=== PATIENT | female | born 1970 | race Caucasian/White ===

== ENCOUNTER 2019-03-28 17:00 | Emergency (ER) | payer BC ==
--- OUTSIDE RECORDS SUMMARY | 2019-03-28 17:10 | XMS REPORT | Continuity of Care Document ---
:1970 External Reference #:[id number] Author Name Balbir Light M.D. Address [address] [place] [id number] Care Team Providers Name Role Phone Tristan Jiang M.D[facility] Care Team Information [employer] [phone] Problems Active Problems Provider Date Asthma without status asthmaticus Balbir Light M.D. Onset: 08/02/2018 Allergic rhinitis due to pollen Balbir Light M.D. Onset: 08/02/2018 Social History Type Date Description Comments Sex Unknown ETOH Use Occasionally consumes alcohol Tobacco Use Start: Unknown End: Patient is a former smoker Unknown Recreational Drug Use Denies Drug Use Smoking Status Reviewed: 08/02/18 Patient is a former smoker Allergies, Adverse Reactions, Alerts Active Allergies Reaction Severity Comments Date Codeine Hives 08/02/2018 Medications Active Medications SIG Qnty Indications Ordering Date Provider Arnuity Ellipta 1 inhalation once 30units Balbir Light, 08/02/2018 a day 90 day M.D. 200mcg/Act Aerosol supply Singulair 1 by mouth every 90tabs Balbir Light, 10mg Tablets day 90 day supply M.D. Levothyroxine Sodium Unknown 75mcg Tablets Turmeric Unknown 400mg Capsules Vitamin D High 1 tablets by mouth Unknown Potency everyday. 1000Unit Capsules Nasacort Allergy 24HR spray 1 spray into Unknown each nostril one 55mcg/Act Aerosol time daily Vitamin B12 twice a day Unknown 1000mcg Tablets ER Medications Administered in Office Medication SIG Qnty Indications Ordering Provider Date Injection Allergy Injection 02/14/2019 Injection Injection Allergy Injection 02/07/2019 Injection Injection Allergy Injection 01/30/2019 Injection Injection Allergy Injection 01/24/2019 Injection Injection Allergy Injection 01/15/2019 Injection Injection Allergy Injection 01/01/2019 Injection Injection Allergy Injection 12/25/2018 Injection Injection Allergy Injection 12/19/2018 Injection Injection Allergy Injection 12/11/2018 Injection Injection Allergy Injection 12/06/2018 Injection Injection Allergy Injection 11/28/2018 Injection Injection Allergy Injection 11/20/2018 Injection Injection Allergy Injection 11/14/2018 Injection Injection Allergy Injection 11/08/2018 Injection Injection Allergy Injection 10/31/2018 Injection Injection Allergy Injection 10/24/2018 Injection Injection Allergy Injection 10/17/2018 Injection Injection Allergy Injection 10/10/2018 Injection Injection Allergy Injection 10/03/2018 Injection Injection Allergy Injection 09/26/2018 Injection Injection Allergy Injection 09/20/2018 Injection Injection Allergy Injection 09/12/2018 Injection Injection Allergy Injection 08/23/2018 Injection Injection Allergy Injection 08/16/2018 Injection Injection Allergy Injection 08/09/2018 Injection Immunizations Description No Information Available Vital Signs Date Vital Result Comment 02/14/2019 3:22pm Height 61 inches 5'1" Weight 1258.00 lb Weight 570.629 kg Respiratory Rate 20 /min Heart Rate 58 /min O2 % BldC Oximetry 96 % BP Systolic 124 mmHg BP Diastolic 78 mmHg Asthma Control Test 22 BMI (Body Mass Index) 237.7 kg/m2 08/02/2018 2:22pm Height 61 inches 5'1" Weight 128.00 lb Weight 58.061 kg Respiratory Rate 18 /min O2 % BldC Oximetry 96 % BP Systolic 113 mmHg BP Diastolic 786 mmHg Fractional Exhaled Nitric Oxide 20 BMI (Body Mass Index) 24.2 kg/m2 Results Description No Information Available Procedures Date Code Description Status 02/14/2019 73540 Injection Completed 02/14/2019 71995 Pre PFT Completed 02/07/2019 91456 Injection Completed 01/30/2019 48219 Injection Completed 01/24/2019 33575 Injection Completed 01/15/2019 51226 Extract 1-10 Completed 01/15/2019 87154 Injection Completed 01/01/2019 56652 Injection Completed 12/25/2018 14861 Injection Completed 12/19/2018 41747 Injection Completed 12/11/2018 38012 Injection Completed 12/06/2018 26838 Injection Completed 11/28/2018 88232 Injection Completed 11/20/2018 36082 Injection Completed 11/14/2018 24633 Injection Completed 11/08/2018 49755 Injection Completed 10/31/2018 94247 Extract 1-10 Completed 10/31/2018 91822 Injection Completed 10/24/2018 39788 Injection Completed 10/17/2018 66582 Injection Completed 10/10/2018 66071 Injection Completed 10/03/2018 99984 Injection Completed 09/26/2018 67850 Injection Completed 09/20/2018 46668 Injection Completed 09/12/2018 67509 Injection Completed 08/23/2018 51866 Injection Completed 08/16/2018 89892 Injection Completed Medical Devices Description No Information Available Encounters Type Date Location Provider Dx Diagnosis Office Visit 02/14/2019 [place] [facility] Balbir Light M.D. J30.1 Allergic rhinitis 3:20p due to pollen J45.998 Other asthma Assessments Date Code Description Provider 02/14/2019 J30.1 Allergic rhinitis due to pollen Balbir Light M.D. 02/14/2019 J30.1 Allergic rhinitis due to pollen Balbir Light M.D. 02/14/2019 J30.1 Allergic rhinitis due to pollen Allergy Injection 02/14/2019 J30.2 Other seasonal allergic rhinitis Balbir Light M.D. 02/14/2019 J45.998 Other asthma Balbir Light M.D. 02/14/2019 J30.2 Other seasonal allergic rhinitis Allergy Injection 02/14/2019 J30.81 Allergic rhinitis due to animal (cat) Balbir Light M.D. (dog) hair and dander 02/14/2019 J30.81 Allergic rhinitis due to animal (cat) Allergy Injection (dog) hair and dander 02/14/2019 J30.89 Other allergic rhinitis Balbir Light M.D. 02/14/2019 J30.89 Other allergic rhinitis Allergy Injection 02/07/2019 J30.1 Allergic rhinitis due to pollen Balbir Light M.D. 02/07/2019 J30.1 Allergic rhinitis due to pollen Allergy Injection 02/07/2019 J30.2 Other seasonal allergic rhinitis Balbir Light M.D. 02/07/2019 J30.2 Other seasonal allergic rhinitis Allergy Injection 02/07/2019 J30.81 Allergic rhinitis due to animal (cat) Balbir Light M.D. (dog) hair and dander 02/07/2019 J30.81 Allergic rhinitis due to animal (cat) Allergy Injection (dog) hair and dander 02/07/2019 J30.89 Other allergic rhinitis Balbir Light M.D. 02/07/2019 J30.89 Other allergic rhinitis Allergy Injection 01/30/2019 J30.1 Allergic rhinitis due to pollen Balbir Light M.D. 01/30/2019 J30.1 Allergic rhinitis due to pollen Allergy Injection 01/30/2019 J30.2 Other seasonal allergic rhinitis Balbir Light M.D. 01/30/2019 J30.2 Other seasonal allergic rhinitis Allergy Injection 01/30/2019 J30.81 Allergic rhinitis due to animal (cat) Balbir Light M.D. (dog) hair and dander 01/30/2019 J30.81 Allergic rhinitis due to animal (cat) Allergy Injection (dog) hair and dander 01/30/2019 J30.89 Other allergic rhinitis Balbir Light M.D. 01/30/2019 J30.89 Other allergic rhinitis Allergy Injection 01/24/2019 J30.1 Allergic rhinitis due to pollen Balbir Light M.D. 01/24/2019 J30.1 Allergic rhinitis due to pollen Allergy Injection 01/24/2019 J30.2 Other seasonal allergic rhinitis Balbir Light M.D. 01/24/2019 J30.2 Other seasonal allergic rhinitis Allergy Injection 01/24/2019 J30.81 Allergic rhinitis due to animal (cat) Balbir Light M.D. (dog) hair and dander 01/24/2019 J30.81 Allergic rhinitis due to animal (cat) Allergy Injection (dog) hair and dander 01/24/2019 J30.89 Other allergic rhinitis Balbir Light M.D. 01/24/2019 J30.89 Other allergic rhinitis Allergy Injection 01/15/2019 J30.1 Allergic rhinitis due to pollen Balbir Light M.D. 01/15/2019 J30.1 Allergic rhinitis due to pollen Allergy Injection 01/15/2019 J30.2 Other seasonal allergic rhinitis Balbir Light M.D. 01/15/2019 J30.2 Other seasonal allergic rhinitis Allergy Injection 01/15/2019 J30.81 Allergic rhinitis due to animal (cat) Balbir Light M.D. (dog) hair and dander 01/15/2019 J30.81 Allergic rhinitis due to animal (cat) Allergy Injection (dog) hair and dander 01/15/2019 J30.89 Other allergic rhinitis Balbir Light M.D. 01/15/2019 J30.89 Other allergic rhinitis Allergy Injection 01/01/2019 J30.1 Allergic rhinitis due to pollen Balbir Light M.D. 01/01/2019 J30.1 Allergic rhinitis due to pollen Allergy Injection 01/01/2019 J30.2 Other seasonal allergic rhinitis Balbir Light M.D. 01/01/2019 J30.2 Other seasonal allergic rhinitis Allergy Injection 01/01/2019 J30.81 Allergic rhinitis due to animal (cat) Balbir Light M.D. (dog) hair and dander 01/01/2019 J30.81 Allergic rhinitis due to animal (cat) Allergy Injection (dog) hair and dander 01/01/2019 J30.89 Other allergic rhinitis Balibr Light M.D. 01/01/2019 J30.89 Other allergic rhinitis Allergy Injection 12/25/2018 J30.1 Allergic rhinitis due to pollen Balbir Light M.D. 12/25/2018 J30.1 Allergic rhinitis due to pollen Allergy Injection 12/25/2018 J30.2 Other seasonal allergic rhinitis Balbir Light M.D. 12/25/2018 J30.2 Other seasonal allergic rhinitis Allergy Injection 12/25/2018 J30.81 Allergic rhinitis due to animal (cat) Balbir Light M.D. (dog) hair and dander 12/25/2018 J30.81 Allergic rhinitis due to animal (cat) Allergy Injection (dog) hair and dander 12/25/2018 J30.89 Other allergic rhinitis Balbir Light M.D. 12/25/2018 J30.89 Other allergic rhinitis Allergy Injection 12/19/2018 J30.1 Allergic rhinitis due to pollen Balbir Light M.D. 12/19/2018 J30.1 Allergic rhinitis due to pollen Allergy Injection 12/19/2018 J30.2 Other seasonal allergic rhinitis Balbir Light M.D. 12/19/2018 J30.2 Other seasonal allergic rhinitis Allergy Injection 12/19/2018 J30.81 Allergic rhinitis due to animal (cat) Balbir Light M.D. (dog) hair and dander 12/19/2018 J30.81 Allergic rhinitis due to animal (cat) Allergy Injection (dog) hair and dander 12/19/2018 J30.89 Other allergic rhinitis Balbir Light M.D. 12/19/2018 J30.89 Other allergic rhinitis Allergy Injection 12/11/2018 J30.1 Allergic rhinitis due to pollen Balbir Light M.D. 12/11/2018 J30.1 Allergic rhinitis due to pollen Allergy Injection 12/11/2018 J30.2 Other seasonal allergic rhinitis Balbir Light M.D. 12/11/2018 J30.2 Other seasonal allergic rhinitis Allergy Injection 12/11/2018 J30.81 Allergic rhinitis due to animal (cat) Balbir Light M.D. (dog) hair and dander 12/11/2018 J30.81 Allergic rhinitis due to animal (cat) Allergy Injection (dog) hair and dander 12/11/2018 J30.89 Other allergic rhinitis Balbir Light M.D. 12/11/2018 J30.89 Other allergic rhinitis Allergy Injection 12/06/2018 J30.1 Allergic rhinitis due to pollen Balbir Light M.D. 12/06/2018 J30.1 Allergic rhinitis due to pollen Allergy Injection 12/06/2018 J30.2 Other seasonal allergic rhinitis Balbir Light M.D. 12/06/2018 J30.2 Other seasonal allergic rhinitis Allergy Injection 12/06/2018 J30.81 Allergic rhinitis due to animal (cat) Balbir Light M.D. (dog) hair and dander 12/06/2018 J30.81 Allergic rhinitis due to animal (cat) Allergy Injection (dog) hair and dander 12/06/2018 J30.89 Other allergic rhinitis Balbir Light M.D. 12/06/2018 J30.89 Other allergic rhinitis Allergy Injection 11/28/2018 J30.1 Allergic rhinitis due to pollen Balbir Light M.D. 11/28/2018 J30.1 Allergic rhinitis due to pollen Allergy Injection 11/28/2018 J30.2 Other seasonal allergic rhinitis Balbir Light M.D. 11/28/2018 J30.2 Other seasonal allergic rhinitis Allergy Injection 11/28/2018 J30.81 Allergic rhinitis due to animal (cat) Balbir Light M.D. (dog) hair and dander 11/28/2018 J30.81 Allergic rhinitis due to animal (cat) Allergy Injection (dog) hair and dander 11/28/2018 J30.89 Other allergic rhinitis Balbir Light M.D. 11/28/2018 J30.89 Other allergic rhinitis Allergy Injection 11/20/2018 J30.1 Allergic rhinitis due to pollen Balbir Light M.D. 11/20/2018 J30.1 Allergic rhinitis due to pollen Allergy Injection 11/20/2018 J30.2 Other seasonal allergic rhinitis Balbir Light M.D. 11/20/2018 J30.2 Other seasonal allergic rhinitis Allergy Injection 11/20/2018 J30.81 Allergic rhinitis due to animal (cat) Balbir Light M.D. (dog) hair and dander 11/20/2018 J30.81 Allergic rhinitis due to animal (cat) Allergy Injection (dog) hair and dander 11/20/2018 J30.89 Other allergic rhinitis Balbir Light M.D. 11/20/2018 J30.89 Other allergic rhinitis Allergy Injection 11/14/2018 J30.1 Allergic rhinitis due to pollen Balbir Light M.D. 11/14/2018 J30.1 Allergic rhinitis due to pollen Allergy Injection 11/14/2018 J30.2 Other seasonal allergic rhinitis Balbir Light M.D. 11/14/2018 J30.2 Other seasonal allergic rhinitis Allergy Injection 11/14/2018 J30.81 Allergic rhinitis due to animal (cat) Balbir Light M.D. (dog) hair and dander 11/14/2018 J30.81 Allergic rhinitis due to animal (cat) Allergy Injection (dog) hair and dander 11/14/2018 J30.89 Other allergic rhinitis Balbir Light M.D. 11/14/2018 J30.89 Other allergic rhinitis Allergy Injection 11/08/2018 J30.1 Allergic rhinitis due to pollen Balbir Light M.D. 11/08/2018 J30.1 Allergic rhinitis due to pollen Allergy Injection 11/08/2018 J30.2 Other seasonal allergic rhinitis Balbir Light M.D. 11/08/2018 J30.2 Other seasonal allergic rhinitis Allergy Injection 11/08/2018 J30.81 Allergic rhinitis due to animal (cat) Balbir Light M.D. (dog) hair and dander 11/08/2018 J30.81 Allergic rhinitis due to animal (cat) Allergy Injection (dog) hair and dander 11/08/2018 J30.89 Other allergic rhinitis Balbir Light M.D. 11/08/2018 J30.89 Other allergic rhinitis Allergy Injection 10/31/2018 J30.1 Allergic rhinitis due to pollen Balbir Light M.D. 10/31/2018 J30.1 Allergic rhinitis due to pollen Tamera Mars M.D. 10/31/2018 J30.2 Other seasonal allergic rhinitis Balbir Light M.D. 10/31/2018 J30.1 Allergic rhinitis due to pollen Allergy Injection 10/31/2018 J30.81 Allergic rhinitis due to animal (cat) Balbir Light M.D. (dog) hair and dander 10/31/2018 J30.2 Other seasonal allergic rhinitis Tamera Mars M.D. 10/31/2018 J30.89 Other allergic rhinitis Balbir Light M.D. 10/31/2018 J30.2 Other seasonal allergic rhinitis Allergy Injection 10/31/2018 J30.81 Allergic rhinitis due to animal (cat) Tamera Mars M.D. (dog) hair and dander 10/31/2018 J30.81 Allergic rhinitis due to animal (cat) Allergy Injection (dog) hair and dander 10/31/2018 J30.89 Other allergic rhinitis Tamera Mars M.D. 10/31/2018 J30.89 Other allergic rhinitis Allergy Injection 10/24/2018 J30.1 Allergic rhinitis due to pollen Balbir Light M.D. 10/24/2018 J30.1 Allergic rhinitis due to pollen Allergy Injection 10/24/2018 J30.2 Other seasonal allergic rhinitis Balbir Light M.D. 10/24/2018 J30.2 Other seasonal allergic rhinitis Allergy Injection 10/24/2018 J30.81 Allergic rhinitis due to animal (cat) Balbir Light M.D. (dog) hair and dander 10/24/2018 J30.81 Allergic rhinitis due to animal (cat) Allergy Injection (dog) hair and dander 10/24/2018 J30.89 Other allergic rhinitis Balbir Light M.D. 10/24/2018 J30.89 Other allergic rhinitis Allergy Injection 10/17/2018 J30.1 Allergic rhinitis due to pollen Balbir Light M.D. 10/17/2018 J30.1 Allergic rhinitis due to pollen Allergy Injection 10/17/2018 J30.2 Other seasonal allergic rhinitis Balbir Light M.D. 10/17/2018 J30.2 Other seasonal allergic rhinitis Allergy Injection 10/17/2018 J30.81 Allergic rhinitis due to animal (cat) Balbir Light M.D. (dog) hair and dander 10/17/2018 J30.81 Allergic rhinitis due to animal (cat) Allergy Injection (dog) hair and dander 10/17/2018 J30.89 Other allergic rhinitis Balbir Light M.D. 10/17/2018 J30.89 Other allergic rhinitis Allergy Injection 10/10/2018 J30.1 Allergic rhinitis due to pollen Balbir Light M.D. 10/10/2018 J30.1 Allergic rhinitis due to pollen Allergy Injection 10/10/2018 J30.2 Other seasonal allergic rhinitis Balbir Light M.D. 10/10/2018 J30.2 Other seasonal allergic rhinitis Allergy Injection 10/10/2018 J30.81 Allergic rhinitis due to animal (cat) Balbir Light M.D. (dog) hair and dander 10/10/2018 J30.81 Allergic rhinitis due to animal (cat) Allergy Injection (dog) hair and dander 10/10/2018 J30.89 Other allergic rhinitis Balbir Light M.D. 10/10/2018 J30.89 Other allergic rhinitis Allergy Injection 10/03/2018 J30.1 Allergic rhinitis due to pollen Balbir Light M.D. 10/03/2018 J30.1 Allergic rhinitis due to pollen Allergy Injection 10/03/2018 J30.2 Other seasonal allergic rhinitis Balbir Light M.D. 10/03/2018 J30.2 Other seasonal allergic rhinitis Allergy Injection 10/03/2018 J30.81 Allergic rhinitis due to animal (cat) Balbir Light M.D. (dog) hair and dander 10/03/2018 J30.81 Allergic rhinitis due to animal (cat) Allergy Injection (dog) hair and dander 10/03/2018 J30.89 Other allergic rhinitis Balbir Light M.D. 10/03/2018 J30.89 Other allergic rhinitis Allergy Injection 09/26/2018 J30.1 Allergic rhinitis due to pollen Balbir Light M.D. 09/26/2018 J30.1 Allergic rhinitis due to pollen Allergy Injection 09/26/2018 J30.2 Other seasonal allergic rhinitis Balbir Light M.D. 09/26/2018 J30.2 Other seasonal allergic rhinitis Allergy Injection 09/26/2018 J30.81 Allergic rhinitis due to animal (cat) Balbir Light M.D. (dog) hair and dander 09/26/2018 J30.81 Allergic rhinitis due to animal (cat) Allergy Injection (dog) hair and dander 09/26/2018 J30.89 Other allergic rhinitis Balbir Light M.D. 09/26/2018 J30.89 Other allergic rhinitis Allergy Injection 09/20/2018 J30.1 Allergic rhinitis due to pollen Balbir Light M.D. 09/20/2018 J30.1 Allergic rhinitis due to pollen Allergy Injection 09/20/2018 J30.2 Other seasonal allergic rhinitis Balbir Light M.D. 09/20/2018 J30.2 Other seasonal allergic rhinitis Allergy Injection 09/20/2018 J30.81 Allergic rhinitis due to animal (cat) Balbir Light M.D. (dog) hair and dander 09/20/2018 J30.81 Allergic rhinitis due to animal (cat) Allergy Injection (dog) hair and dander 09/20/2018 J30.89 Other allergic rhinitis Balbir Light M.D. 09/20/2018 J30.89 Other allergic rhinitis Allergy Injection 09/12/2018 J30.1 Allergic rhinitis due to pollen Balbir Light M.D. 09/12/2018 J30.1 Allergic rhinitis due to pollen Allergy Injection 09/12/2018 J30.2 Other seasonal allergic rhinitis Balbir Light M.D. 09/12/2018 J30.2 Other seasonal allergic rhinitis Allergy Injection 09/12/2018 J30.81 Allergic rhinitis due to animal (cat) Balbir Light M.D. (dog) hair and dander 09/12/2018 J30.81 Allergic rhinitis due to animal (cat) Allergy Injection (dog) hair and dander 09/12/2018 J30.89 Other allergic rhinitis Balbir Light M.D. 09/12/2018 J30.89 Other allergic rhinitis Allergy Injection 08/23/2018 J30.1 Allergic rhinitis due to pollen Balbir Light M.D. 08/23/2018 J30.1 Allergic rhinitis due to pollen Allergy Injection 08/23/2018 J30.2 Other seasonal allergic rhinitis Balbir Light M.D. 08/23/2018 J30.2 Other seasonal allergic rhinitis Allergy Injection 08/23/2018 J30.81 Allergic rhinitis due to animal (cat) Balbir Light M.D. (dog) hair and dander 08/23/2018 J30.81 Allergic rhinitis due to animal (cat) Allergy Injection (dog) hair and dander 08/23/2018 J30.89 Other allergic rhinitis Balbir Light M.D. 08/23/2018 J30.89 Other allergic rhinitis Allergy Injection 08/16/2018 J30.1 Allergic rhinitis due to pollen Balbir Light M.D. 08/16/2018 J30.1 Allergic rhinitis due to pollen Allergy Injection 08/16/2018 J30.2 Other seasonal allergic rhinitis Balbir Light M.D. 08/16/2018 J30.2 Other seasonal allergic rhinitis Allergy Injection 08/16/2018 J30.81 Allergic rhinitis due to animal (cat) Balbir Light M.D. (dog) hair and dander 08/16/2018 J30.81 Allergic rhinitis due to animal (cat) Allergy Injection (dog) hair and dander 08/16/2018 J30.89 Other allergic rhinitis Balbir Light M.D. 08/16/2018 J30.89 Other allergic rhinitis Allergy Injection Plan of Treatment Future Appointment(s):02/21/2019 3:00 pm - Allergy Injection at [facility]08/15/2019 3:20 pm - Balbir Light M.D. at [facility]02/14/2019 - Balbir Light M.D.J30.1 Allergic rhinitis due to pollenFollow up:6 months for follow up JAQUI and pre PFTRecommendations:to continue with Immunotherapy ( helpfull) very helpful continue with Nasacort 1 squirt once a dayJ45.998 Other asthmaRecommendations:continue with the Arnuity 200 mcg ,1 inhalation once a day Ventolin to be used as needed PFT looksgood continue with Montelukast 1tab po once a day Functional Status Description No Information Available Mental Status Description No Information Available Referrals Description No Information Available
--- OUTSIDE RECORDS SUMMARY | 2019-03-28 17:10 | XMS REPORT | Continuity of Care Document ---
:1970 Author Name Inspector Experimental Assembly, System Address Unavailable Unavailable , Care Team Providers Name Role Phone Tristan Jiang MD Unavailable Pauline SMITH, Dr. Raphael Wan Unavailable Hannah England RPA Unavailable Critical access hospital Unavailable Luis Enrique MEDICAL ASSEMBLY, Ana Unavailable Unavailable Murali MEDICAL ASSEMBLY, Marissa Unavailable Unavailable Mahnaz WAXED BAG MACHINE OPERATOR, Leann Unavailable Unavailable Unavailable Unavailable Problems ATOPIC ASTHMA (J45.909) (493.00) Critical access hospital Comments: IgE quite elevated, and mulitple RAST testing is positive. DYSPNEA (R06.00) (786.09) Critical access hospital EXERCISE-INDUCED ASTHMA (J45.990) (493.81) Critical access hospital Prognosis: feeling much better on immunotherapy. Pulmonary function studies stable and normal. Requesting followup with communication consultant only. Will call us if she has more difficulty with his asthma control. as of 26-Feb-2019 GERD (GASTROESOPHAGEAL REFLUX DISEASE) (K21.9) (530.81) MD Raphael Carpenter Dr. HYPOTHYROID (E03.9) (244.9) MD Raphael Carpenter Dr. Allergies and Adverse Reactions Codeine/Codeine Derivatives (Allergy) Medications Albuterol Sulfate HFA 108 (90 Comments: Medication taken Base) MCG/ACT Inhalation as needed. Aerosol Solution; 1-2 every four hours, as needed (108 (90 Base) MCG/ACT) Arnuity Ellipta 200 MCG/ACT Inhalation Aerosol Powder Breath Activated; 1 daily (200 MCG/ACT) Immunotherapy LEVOTHYROXINE SODIUM, 75MCG (Oral Tablet); 1 daily (75 MCG) MULTIVITAMIN ADULT (Oral Tablet); 1 daily Singulair 10 MG Oral Tablet; 1 daily (10 MG) VITAMIN D, 2000UNIT (Oral Capsule); 1 daily (2000 UNIT) Pantoprazole Sodium 40 MG Oral Status: Inactive Tablet Delayed Release; 1 daily (40 MG) ProAir HFA 108 (90 Base) MCG/ACT Inhalation Aerosol Solution; 2 Puff four times daily as needed for 30 days Ordered: 04-Dec-2018 Start: 04-Dec-2018 End : 03-Jan-2019 Quantity: 1 {Inhalation} MD Raphael Carpenter Dr. Status: Inactive Refills: 0 Comments: Medication taken as needed. Singulair 10 MG Oral Tablet; 1 (one) Tablet daily for 90 days Ordered: Start: 15-Mar-2018 End: 13-Jun-2018 Quantity: 90 {Tablet} Bekcy Medrano Status: Inactive Refills: 0 Comments: Keep upcoming appt Procedures EXHALED GAS NITRIC OXIDE MEASUREMENT Status: Completed 26-Feb-2019 (MOLES/VOLUME) (65517) PRE AND POST (73587) Status: Completed 26-Feb-2019 EXHALED NITRIC OXIDE MEASUREMENT (30881) Status: Completed 28-Feb-2018 RESPIRATORY FLOW VOLUME LOOP (67081) Status: Completed 15-Jun-2016 REST/ EXERCISE OXIMETRY (30525) Status: Completed 12-Feb-2016 TOTAL VITAL CAPACITY (74711) Status: Completed 12-Feb-2016 TOTAL BODY PLETHYSMOGRAPHY (29709) Status: Completed 12-Feb-2016 TGV THORACIC GAS VOLUME: AIRWAY CLOSING Status: Completed 12-Feb-2016 VOLUME MEASUREMENT: PULM FUNCTION TEST BY GAS (14439) RESPIRATORY FLOW VOLUME LOOP (32766) Status: Completed 12-Feb-2016 DLCO (CARBON MONOXIDE DIFFUSING CAPACITY) Status: Completed 12-Feb-2016 (20063) AIRFLOW RESISTANCE MEASUREMENT: PULM FUNCT Status: Completed 12-Feb-2016 TEST OSCILLOMETRY (05975) PRE AND POST (93626) Status: Completed 12-Feb-2016 ANCA Status: Completed 19-Jul-2016 Comments: Normal. Chest X-ray Status: Completed 14-Dec-2015 Comments: Normal. [facility] FeNO Status: Completed 26-Feb-2019 Comments: 14 ppb FeNO Status: Completed 28-Feb-2018 Comments: 58 ppb Flu Vaccine Status: Completed 20-Jan-2019 IGE level Status: Completed 19-Jul-2016 Comments: Abnormal. 1967 No Surgeries Status: Completed PFT Status: Completed 15-Jun-2016 Comments: No Obstruction. FEV1 2.12 (84), ratio 76 PFT Status: Completed 12-Feb-2016 Comments: Abnormal. Minimal Obstruction. No Restriction. Normal Diffusion Capacity. FEV1 92%, ratio 77% PFT Status: Completed 26-Feb-2019 Comments: No Obstruction. FEV1 2.28 (88), ratio 81 RAST panel Status: Completed 19-Jul-2016 Comments: Abnormal. multiple antigens SIMPLE PFT: BREATHING CAPACITY TEST: BREATHING Status: Completed 15-Jun-2016 CAPACITY TEST (14913)Result: Hemoptysis: No [place] Sleepiness ScaleResult: [Situation] Sitting Status: Completed 2015 and Readin = Would never doze; Watching Television: 0 = Would never doze; Sitting inactive in a public place (theatre, meeting): 0 = Would never doze; As a passenger in a car for an hour without a break: 1 = Slight chance of dozing; Lying down to rest in the afternoon: 2 = Moderate chance of dozing; Sitting and talking to someone: 0 = Would never doze; Sitting quietly after lunch without alcohol: 0 = Would never doze; In a car, while stopping for a few minutes in traffic: 0 = Would never doze [Total] Score: 3 CHEST X-RAY, PA AND LATERAL (19399)Result: Are you Status: Completed 2015 or could you become ?: No; When was you last CXR/CT?: OVER WEEK AGO; Candy Feeder: Ronny Dorman, IVONNET Immunizations Influenza (3 years and up) On: 22-Mar-2015 Influenza (3 years and up) On: 22-Mar-2016 Influenza (3 years and up) On: 20-Jan-2017 Family History Brother 1 Status: Active Comments: . Lung Cancer. age 58 Father Status: Active Comments: . Colon Cancer. age 78 Mother Status: Active Comments: . Pulmonary Emboli. age 64 Son 1 Status: Active Comments: In good health. Asthma Social History Alcohol use: Occasional alcohol use. Caffeine use Current work status: Full-time. Comments: [employer] Marital status: . No drug use Tobacco use: Former smoker. Remotely quit Comments: smoked 1 PPD for 15 years tobacco use. (quit 2001) Former smoker Female Plan of Treatment IMMUNOGLOBULIN E (IgE) (24123) Start: 15-Jun-2016 15:19 Request ANCA - C & P with reflex (18804) Start: 15-Jun-2016 15:19 Request CBC, PLATELETS & AUT DIFF (23029) Start: 15-Jun-2016 15:19 Request REGIONAL ALLERGY PANEL (82096) Start: 15-Jun-2016 15:19 Request IMMUNOGLOBULIN E (IgE) (19403) Start: 12-Feb-2016 10:19 Request ANCA - C & P with reflex (41017) Start: 12-Feb-2016 10:19 Request CBC, PLATELETS & AUT DIFF (12650) Start: 12-Feb-2016 10:19 Request REGIONAL ALLERGY PANEL (47268) Start: 12-Feb-2016 10:19 Request ATOPIC ASTHMA : Asthma patient education Indication:ATOPIC ASTHMA ATOPIC ASTHMA : Referral to Fitness Club Manager: Dr Freeman's group, need [facility] Indication:ATOPIC ASTHMA EXERCISE-INDUCED ASTHMA : Asthma patient education Indication:EXERCISE-INDUCED ASTHMA EXERCISE-INDUCED ASTHMA : PPRT next visit Indication:EXERCISE-INDUCED ASTHMA EXERCISE-INDUCED ASTHMA : Asthma patient education Indication:EXERCISE-INDUCED ASTHMA Results No Known Results No Result Information Available Vital Signs 26-Feb-2019 15:31 Temperature 97.1 f Comments: Method: Tympanic Pulse 61 /min Comments: Pattern: Regular Respiration Rate 14 /min Comments: Pattern: Unlabored O2 SAT 98 % Comments: Room air BP Systolic 116 mm[Hg] Comments: Patient Position: Sitting; Cuff Location: Left Arm; Cuff Size: Standard BP Diastolic 64 mm[Hg] Comments: Patient Position: Sitting; Cuff Location: Left Arm; Cuff Size: Standard Weight 130 lb Height 61.5 in BMI 24.17 kg/m2 BSA 1.58 m2 28-Feb-2018 14:59 Temperature 97.6 f Comments: Method: Tympanic Pulse 62 /min Comments: Pattern: Regular Respiration Rate 14 /min Comments: Pattern: Unlabored O2 SAT 97 % Comments: Room air BP Systolic 118 mm[Hg] Comments: Patient Position: Sitting; Cuff Location: Left Arm; Cuff Size: Standard BP Diastolic 70 mm[Hg] Comments: Patient Position: Sitting; Cuff Location: Left Arm; Cuff Size: Standard Weight 129 lb Height 61.5 in BMI 23.98 kg/m2 BSA 1.58 m2 08-Mar-2017 14:43 Temperature 97 f Comments: Method: Tympanic Pulse 68 /min Comments: Pattern: Regular Respiration Rate 14 /min Comments: Pattern: Unlabored O2 SAT 97 % Comments: Room air BP Systolic 108 mm[Hg] Comments: Patient Position: Sitting; Cuff Location: Left Arm; Cuff Size: Standard BP Diastolic 62 mm[Hg] Comments: Patient Position: Sitting; Cuff Location: Left Arm; Cuff Size: Standard Weight 130 lb Height 61.5 in BMI 24.17 kg/m2 BSA 1.58 m2 15-Jun-2016 15:06 Temperature 96.3 f Comments: Method: Tympanic Pulse 67 /min Comments: Pattern: Regular Respiration Rate 14 /min Comments: Pattern: Unlabored O2 SAT 99 % Comments: Room air BP Systolic 122 mm[Hg] Comments: Patient Position: Sitting; Cuff Location: Left Arm; Cuff Size: Standard BP Diastolic 66 mm[Hg] Comments: Patient Position: Sitting; Cuff Location: Left Arm; Cuff Size: Standard Weight 127 lb Height 61.5 in BMI 23.61 kg/m2 BSA 1.57 m2 12-Feb-2016 9:05 Comments: Exertional SaO2 -96% Temperature 97.5 f Comments: Method: Tympanic Pulse 60 /min Comments: Pattern: Regular Respiration Rate 14 /min Comments: Pattern: Unlabored O2 SAT 98 % Comments: Room air BP Systolic 108 mm[Hg] Comments: Patient Position: Sitting; Cuff Location: Left Arm; Cuff Size: Standard BP Diastolic 62 mm[Hg] Comments: Patient Position: Sitting; Cuff Location: Left Arm; Cuff Size: Standard Weight 128 lb Height 61.5 in BMI 23.79 kg/m2 BSA 1.57 m2 Advance Directives HIPAA - Effective on 02/12/2016. Expiration date unspecified. Effective: Scanned Document is available upon request. Encounters Office Visit 26-Feb-2019 15:45 To 26-Feb-2019 16:18 Encounter Reason: ASTHMA, FOLLOW UP - The patient's long-term asthma pattern may be classified as intermittent. The [facility] Office t clinic visit was 12 month(s) ago. Management changes made at the last visit include none (referral to communication consultant). The patient's asthma never causes daytime symptoms (only when running). The patient's asthma is not disturbing sleep. Symptoms do not include wheezing, chest tightness, shortness of breath, productive cough or non-productive cough. The patient describes this as mild and improving. Sympto ms are exacerbated by activity, while symptoms are not exacerbated by cold temperature or inhaler use. Symptoms are relieved by inhaler use and rest. Associated symptoms include allergy symptoms, while associated symptoms do not include orthopnea, fever, chills or upper respiratory infection symptoms. Current treatment includes inhaled short-acting beta-2 agonists, inhaled corticosteroids (arnuity pre scribed by communication consultant) and leukotriene modifiers. Bronchodilator use is staying the same. By report there is good symptom control. Pertinent medical history includes allergic rhinitis, while pertinent me dical history does not include gastroesophageal reflux. The patient is currently able to do activities of daily living without limitations. Encounter Diagnosis: EXERCISE-INDUCED ASTHMA, ATOPIC ASTHMA Medication Order 04-Dec-2018 11:06 To 04-Dec-2018 11:07 Encounter Diagnosis: ATOPIC ASTHMA [facility] Office Office Visit 28-Feb-2018 14:57 To 28-Feb-2018 15:28 Encounter Reason: ASTHMA, FOLLOW UP - The patient's long-term asthma pattern may be classified as intermittent. The [facility] Office t clinic visit was 12 month(s) ago. Management changes made at the last visit include adding Singulair. The patient's asthma never causes daytime symptoms ( only when running). The patient's asthma is no t disturbing sleep. Symptoms do not include wheezing, chest tightness, shortness of breath, productive cough or non-productive cough. Onset of symptoms was gradual year(s) ago. Onset followed exercise ( "I am a runner"). The symptoms occur intermittently. The patient describes this as mild and worsening. Symptoms are exacerbated by activity, while symptoms are not exacerbated by cold temperature or inh aler use. Symptoms are relieved by inhaler use (2 puffs of albuterol before she runs, has been doing it intermittently...runs anywhere from 5 miles, sometimes an hour, has been running on a treadmill, s ometimes outside). Associated symptoms include allergy symptoms, while associated symptoms do not include orthopnea, fever, chills or upper respiratory infection symptoms. Current treatment includes inh aled short-acting beta-2 agonists and leukotriene modifiers. Encounter Diagnosis: ATOPIC ASTHMA, EXERCISE- INDUCED ASTHMA, DYSPNEA Office Visit 08-Mar-2017 14:31 To 08-Mar-2017 15:09 Encounter Reason: ASTHMA, FOLLOW UP - The patient's long-term asthma pattern may be classified as intermittent. The [facility] Office t clinic visit was 10 month(s) ago. Management changes made at the last visit include adding Singulair. The patient's asthma never causes daytime symptoms ( only when running). The patient's asthma is no t disturbing sleep. Symptoms do not include wheezing, chest tightness, shortness of breath, productive cough or non-productive cough. Onset of symptoms was gradual year(s) ago. Onset followed exercise ( "I am a runner"). The symptoms occur intermittently. The patient describes this as mild and unchanged (vexing intermittent symptoms). Symptoms are exacerbated by activity, while symptoms are not exacerb ated by cold temperature or inhaler use. Symptoms are relieved by inhaler use ( 2 puffs of albuterol before she runs, has been doing it intermittently...runs anywhere from 5 miles, sometimes an hour, has been running on a treadmill, sometimes outside). Associated symptoms include allergy symptoms, while associated symptoms do not include orthopnea, fever, chills or upper respiratory infection symptoms. Current treatment includes inhaled short-acting beta-2 agonists and leukotriene modifiers. Encounter Diagnosis: EXERCISE-INDUCED ASTHMA, ATOPIC ASTHMA Office Visit 15-Jun-2016 14:55 To 15-Jun-2016 15:35 Encounter Reason: ASTHMA, FOLLOW UP - The patient's long-term asthma pattern may be classified as intermittent. The [facility] Office t clinic visit was 4 month(s) ago. Management changes made at the last visit include adding Singulair. The patient's asthma never causes daytime symptoms ( only when running). The patient's asthma is dis turbing sleep. Symptoms include wheezing and shortness of breath, while symptoms do not include chest tightness, productive cough or non-productive cough. Onset of symptoms was gradual year(s) ago. Onse t followed exercise ("I am a runner"). The symptoms occur intermittently. The patient describes this as mild and unchanged (vexing intermittent symptoms). Symptoms are exacerbated by activity, while sym ptoms are not exacerbated by cold temperature or inhaler use. Symptoms are relieved by inhaler use (2 puffs of albuterol before she runs, has been doing it intermittently...runs anywhere from 5 miles, s ometimes an hour, has been running on a treadmill, sometimes outside). Associated symptoms include allergy symptoms, while associated symptoms do not include orthopnea, fever, chills or upper respirator y infection symptoms. Current treatment includes inhaled short-acting beta-2 agonists. Encounter Diagnosis: EXERCISE-INDUCED ASTHMA Office Visit 12-Feb-2016 8:53 To 12-Feb-2016 10:30 Encounter Reason: ASTHMA, FOLLOW UP - The patient's long-term asthma pattern may be classified as intermittent. The [facility] Office ient's asthma never causes daytime symptoms (only when running). The patient's asthma is disturbing sleep. Symptoms include wheezing and shortness of breath, while symptoms do not include chest tightnes s, productive cough or non-productive cough. Onset of symptoms was gradual year (s) ago. Onset followed exercise ("I am a runner"). The symptoms occur intermittently. The patient describes this as mild a nd unchanged (vexing intermittent symptoms). Symptoms are exacerbated by activity, while symptoms are not exacerbated by cold temperature or inhaler use. Symptoms are relieved by inhaler use (2 puffs of albuterol before she runs, has been doing it intermittently...runs anywhere from 5 miles, sometimes an hour, has been running on a treadmill, sometimes outside). Associated symptoms include allergy sym ptoms, while associated symptoms do not include orthopnea, fever, chills or upper respiratory infection symptoms. Current treatment includes inhaled short- acting beta-2 agonists.She did have an evaluati on for allergies years ago, and thinks she may be allergic to ragweed (can't remember if is was skin testing or RAST testing).Sometimes when she lies on her left side, she feels anterior symptoms "it feels funny, not really pain". Encounter Diagnosis: ASTHMA Historical Summary 20-Jan-2016 10:49 To 20-Jan-2016 10:54 [facility] Office Payers [facility] [address] [place] [id number] [place] Group Number: [id number] tel:[phone] [place] [address] Agency [address] [facility] [id number] Group Number: NONE tel: Leia Fuentes [address] [place] [address] tel:
[2019-03-28 17:29] VITALS: BP 131/91
--- NOTE | 2019-03-28 18:33 | UC ---
Skin Complaint HPI - HPI Summary HPI Summary: PEr infantry operations specialist: "2 weeks ago pt was tx for yeast infection under LEFT breast w/ ketoconazole cream. Applying cream couple times a week for the past 2 weeks w/ no improvement in rash. Now rash has spread from under Left breast to LEFT abd. No measured fever. Tried aquaphor cream last night w/ no relief. " -clarified that she is only using cream 2x/week (not day). she runs. sports bra irritates it as does the sweat. she ran last 2 days ago. hurts to much o/w. no discharge. no f/c. -called her derm but cant be seen until July -concerend of scabies and herpes. nothing on arms or legs. not painful. - History of Current Complaint Chief Complaint: UCSkin Time Seen by Provider: 03/28/19 18:19 Stated Complaint: SKIN CONCERN Hx Last Menstrual Period: 2 years ago Pain Intensity: 0 - Allergy/Home Medications Allergies/Adverse Reactions: Allergies Allergy/AdvReac Type Severity Reaction Status Date / Time codeine Allergy Hives Verified 03/28/19 17:19 Home Medications: Home Medications Albuterol HFA INHALER* [Ventolin HFA Inhaler*] 1 - 2 puff INH Q4H PRN 03/28/19 [ History Confirmed 03/28/19] Allergy Shot 1 syringe WEEKLY 03/28/19 [History Confirmed 03/28/19] Fexofenadine (NF) [Caitie (NF)] 1 tab DAILY 03/28/19 [History Confirmed ] Fluticasone Furoate ELLIPTA(NF [Arnuity ELLIPTA (NF)] 1 puff DAILY 03/28/19 [ History Confirmed 03/28/19] Levothyroxine TAB* [Synthroid 75 MCG TAB*] 75 mcg PO DAILY 03/28/19 [History Confirmed 03/28/19] Montelukast Sodium TAB* [Singulair 10 MG TAB*] 1 tab QPM 03/28/19 [History Confirmed 03/28/19] PMH/Surg Hx/FS Hx/Imm Hx Previously Healthy: Yes Endocrine History: Hypothyroidism - Surgical History Surgical History: None - Family History Known Family History: Positive: Non-Contributory - Social History Alcohol Use: Occasionally Substance Use Type: None Smoking Status (MU): Never Smoked Tobacco Review of Systems All Other Systems Reviewed And Are Negative: Yes Constitutional: Positive: Negative Skin: Positive: Rash Eyes: Positive: Negative ENT: Positive: Negative Respiratory: Positive: Negative Cardiovascular: Positive: Negative Gastrointestinal: Positive: Negative Genitourinary: Positive: Negative Motor: Positive: Negative Neurovascular: Positive: Negative Musculoskeletal: Positive: Negative Neurological: Positive: Negative Psychological: Positive: Negative Is Patient Immunocompromised?: No Physical Exam Triage Information Reviewed: Yes Appearance: Well-Appearing, No Pain Distress, Well-Nourished - very pleasant Vital Signs: Initial Vital Signs Temp 98.1 F 03/28/19 17:21 Pulse 60 03/28/19 17:21 Resp 16 03/28/19 17:21 BP 131/91 03/28/19 17:21 Pulse Ox 99 03/28/19 17:21 ENT Exam: Normal Respiratory Exam: Normal Respiratory: Positive: Lungs clear, Normal breath sounds, No respiratory distress, No accessory muscle use Cardiovascular Exam: Normal Cardiovascular: Positive: RRR, No Murmur, Brisk Capillary Refill Abdominal Exam: Other - see skin Abdomen Description: Positive: Soft Musculoskeletal Exam: Normal Neurological Exam: Normal Psychological Exam: Normal Skin: Positive: Rashes - b/l inframamamry and area between breasts extending to abdomen w/ red, angry non-blanching coalesced rash with satellite lesions extending around periphery. no dc. non-blanching. no streaks. Course/Dx - Course Course Of Treatment: reassured dx. stressed that 2x/week is not sufficient treatment and running, sweat and sports bra will worsen. needs to avoid those and treat aggresively. she understood me well and is agreeable w/ plan. -dif;cucan x 5 d -ketocoanzole TID -can use OTC anti-fungal powder too - Diagnoses Provider Diagnosis: Candidiasis Discharge ED - Sign-Out/Discharge Documenting (check all that apply): Patient Departure All imaging exams completed and their final reports reviewed: No Studies - Discharge Plan Condition: Stable Disposition: HOME Prescriptions: Fluconazole [Diflucan] 150 mg PO DAILY 5 Days #5 tab Ketoconazole 2 % CREAM (NF) [Nizoral 2% CREAM (NF)] 1 applic TOPICAL TID #60 tube Patient Education Materials: Skin Yeast Infection (ED) Referrals: Tristan Jiang MD [Primary Care Provider] - 5 Days Additional Instructions: We talked about the nature of the yeast infection and need for frequent treatment w/ antifungals. You can also use OTC antifungal foot powder to keep it dry if moist. Avoid running until improved bc the sweat and sports bra will make it worse. 5 days of diflucan has been prescribed. Follow up with your custom ski maker if this persists or worsens. - Billing Disposition and Condition Condition: STABLE Disposition: Home
== END 2019-03-28 18:43 | disposition home or self-care (01) ==
LOC: UCCORT 17:00
DX: B37.2 Candidiasis of skin and nail (principal); E03.9 Hypothyroidism, unspecified; Z79.890 Hormone replacement therapy; Z88.5 Allergy status to narcotic agent
CPT/HCPCS: 99202; G0463